=== PATIENT | female | born 1985 | race Caucasian/White ===

== ENCOUNTER 2017-02-07 07:57 | Inpatient (IN) ==
[2017-02-07] MEDS ORDERED: *HR* Nalbuphine 20 MG/ML AMPUL IVP PRN (08:53)
[2017-02-07] MEDS ORDERED: Metoclopramide 10 MG/2 ML VIAL IVP PRN (08:53)
[2017-02-07] MEDS ORDERED: Famotidine 20 MG/2 ML VIAL IVP PRN (08:53)
[2017-02-07] MEDS ORDERED: Naloxone 0.4 MG/ML INJ IVP PRN (08:53)
[2017-02-07] MEDS ORDERED: miSOPROStol 100 MCG TABLET PO STA (09:02)
[2017-02-07 09:14] LABS: Basophils % 0.6 %; Eosinophils # 0.1 K/mcL (0.0-0.6); Hematocrit 37.3 % (35.3-44.9); Hemoglobin 13.2 g/dL (11.5-15.4); Lymphocytes # 1.2 K/mcL (0.6-4.6); Lymphocytes % 24.3 %; Mean Corpuscular HGB Conc 35.4 g/dL (31.6-35.5); Mean Corpuscular Hemoglobin 31.4 pg (28.0-33.3); Mean Corpuscular Volume 88.8 fL (83.0-100.0); Mean Platelet Volume 10.5 fL (9.4-12.4); Monocytes # 0.4 K/mcL (0.0-1.3); Monocytes % 7.1 %; Neutrophils # 3.3 K/mcL (1.6-8.9); Platelet Count 218 K/mcL (140-400); Red Cell Distribution Width 12.4 % (11.5-14.5)
[2017-02-07 09:19] LABS: Amphetamine Screen,Urine Negative ng/mL (Cutoff=1000); Barbiturate Screen,Urine Negative ng/mL (Cutoff=200); Benzodiazepines Screen,Urine Negative ng/mL (Cutoff=200); Cannabinoid Screen,Urine Negative ng/mL (Cutoff = 50); Cocaine Screen,Urine Negative ng/mL (Cutoff= 300); Opiate Screen,Urine Negative ng/mL (Cutoff=300); Phencyclidine Screen,Urine Negative ng/mL (Cutoff=25)
[2017-02-07] MEDS: Ringers Solution, Lactated 1,000 ML IVC SCH ×3 (09:29→18:40)
--- NOTE | 2017-02-07 10:17 | OB/GYN History & Physical ---
Date of Encounter: 02/07/17 Time of Encounter: 10:14 Assessment and Plan (1) 39 weeks gestation of Current visit: Yes Status: Acute admitted for IOL (2) Type 2 diabetes mellitus affecting in third trimester, antepartum Current visit: Yes Status: Acute Accucheck as needed in labor Will continue medications following delivery History of Present Illness Chief complaint: Schedule IOL HPI: Ms. Nieves is a 31 year old female at 39w5d presents for scheduled Induction of labor for Dr. Luque. Patient reports +FM, denies any contractions or LOF. Patient reports only complication to be Type II DM which is controlled with Insulin and Metformin. Glucose this morning was 84. Patient received 50mcg of Cytotec PO 0925. Blood type: A+, Rubella: Immune, Hep B: Negative, GBS Negative. Past Med Surg Social Fam HX - Past Medical History Source: patient Medical history: diabetes Psychiatric history: no psych history - Past Surgical History Surgical History: other (Left foot-ganglion cyst removal) - Social History Smoking Status: Never smoker Smokeless Tobacco Status: (n/z) Alcohol use: none Drug use: none Current living situation: Home - Independent Activity Level: Independent ambulation Recent Out of Country Travel Within the Last 8 Weeks: No Exposure or Possible Exposure to Illness During Travel: No - Family History Mother Adopted: [place]: master monet Age: 58 Family Member Ethnicity: Non- Living Status: Still Living Hx Family Cardiac Disorders: No Hx Family Respiratory Disorders: No Hx Family Cancer: No Hx Family GI Disorders: No Hx Family Genitourinary Disorders: No Hx Family Endocrine Disorder: Yes (diabetes type 2) Hx Family Musculoskeletal Disorders: No Hx Family Neuromuscular Disorders: No Hx Family Neurologic Disorders: No Hx Family HEENT Disorders: No Hx Family Autoimmune Disorders: No Hx Family Reproductive Disorders: No Hx Family Psychosocial Disorders: No Hx Family Medical Disorders: No Obstetrical History - Pregnancies : 2 Para: 1 Term: 1 : 0 Ab's: 0 Livin Medications and Allergies Lantus 6 units SQ QAM 02/07/17 [History] Lantus 20 unit SQ HS 02/07/17 [History] Metformin HCl [Glucophage] 1,000 mg PO BID 02/07/17 [History] Tablet 1 tab PO DAILY 02/07/17 [History] 3 Allergy/AdvReac Type Severity Reaction Status Date / Time No Known Allergies Allergy Verified 02/07/17 08:42 Review of System OB - Constitutional Constitutional ROS IM: no chills, no fever(s), no headache(s) - Cardiovascular Cardiovascular: no chest pain, no palpitations, no syncope - Respiratory Respiratory: no dyspnea - Gastrointestinal Gastrointestinal: no abdominal pain, no cramping, no diarrhea, no heartburn, no nausea, no vomiting - Genitourinary Genitourinary: no abnormal vaginal bleeding, no dysuria, no flank pain, no urinary frequency, no vaginal discharge, no vaginal odor Exam - Constitutional Constitutional: well developed, well nourished, no acute distress, average body habitus - HEENT HEENT: Normocephaly, Mucus Membranes Moist - Neck Neck exam: full ROM, supple - Lungs Respiratory exam: CTAB - Cardiovascular Cardiovascular exam: RRR, +S1, +S2 - Abdomen Abdomen: Present: bowel sounds normal, gravid, non tender - Extremities Extremities exam: full ROM, normal inspection Deep Tendon Reflex Grade: 2+ Normal - Cervix Dilation: 1 (Per RN on admission) Effacement: 75 Station: -2 - Uterus Uterus exam: Present: normal size, normal contour - Anus/Rectum Anus/Rectum: Present: normal perianal skin (FHR 135 bpm moderate variability + 15x15 accels no decels noted. Cat 1 tracing. Contractions 3-4 min apart) Results Result Diagrams: 02/07/17 08:25 02/07/17 08:25 All other labs normal. - VTE Reasons for not Prescribing Prophylaxis: Treatment not Indicated - Low risk for VTE
[2017-02-07] MEDS ORDERED: Oxytocin 20 units/ LR 1000 mL 20 UNIT/1,000 ML BAG IVC SCH (14:30)
--- NOTE | 2017-02-07 15:45 | Anesthesia Evaluation PreOp ---
Date of Encounter: 02/07/17 Time of Encounter: 15:43 - Past History Planned Operation: MAITE Cardiac History: Denies any Significant Hx Pulmonary History: Denies Any Significant HX PRESSING DEPARTMENT SUPERVISOR History: Denies Any Significant HX Other Medical History: Diabetes Type II, GERD Anesthesia History: No Prior Anesthetic Complications, Past Anesthesia (maite) : Yes Test: Positive Alcohol Use: none Drug use: none Medications and Allergies Lantus 6 units SQ QAM 02/07/17 [History] Lantus 20 unit SQ HS 02/07/17 [History] Metformin HCl [Glucophage] 1,000 mg PO BID 02/07/17 [History] Tablet 1 tab PO DAILY 02/07/17 [History] 3 Allergy/AdvReac Type Severity Reaction Status Date / Time No Known Allergies Allergy Verified 02/07/17 08:42 - Meds/Allergy Pre-op Review Medications Reviewed: Yes Allergies Reviewed: Yes Beta Blockers on Current Med List: No Anesthesia Results - Labs 02/07/17 08:25 02/07/17 08:25 Anesthesia Exam 136/86 88 16 fht 123 Height: 5'3" Weight: 70 kg NPO (# of Hours): 8 Pain Scale: 3 Pain Scale Used: Numeric (1 - 10) - HEENT Pupil (Motor): Pupils equal Mallampati: II Teeth: Normal Oral Opening: Greater than 3 - PRESSING DEPARTMENT SUPERVISOR LOC: Oriented PRESSING DEPARTMENT SUPERVISOR Motor: Normal RUE, Normal LUE, Normal RLE, Normal LLE, Normal Face PRESSING DEPARTMENT SUPERVISOR Sensory: Normal: RUE, LUE, RLE, LLE, Face - Cardiac Rhythm: Regular Murmur: None - Pulmonary Breath Sounds: bilateral Clear Respiratory Effort: Symmetrical Anesthesia Assess/Plan ASA Score: 2 Modified Mundo Scale for Level of Consciousness: Cooperative, oriented, and tranquil Anesthetic Plan: Regional Autologous Blood: No Monitoring Plan: Standard Monitors Recovery Plan: Other (risks discussed, questions answered, consented)
[2017-02-07] MEDS ORDERED: *HR* FentaNYL (PF) 100 MCG/2 ML VIAL ONE (16:42)
[2017-02-07] MEDS ORDERED: *HR* Ropivacaine/PF 0.2% 10 ML AMPUL ONE (16:42)
[2017-02-07] MEDS ORDERED: Epidural Premix (fent/bupiv) 110 ML EP ONE (16:42)
[2017-02-07] MEDS ORDERED: *HR* Ropivacaine/PF 0.2% 10 ML AMPUL EP ONE (17:07)
[2017-02-07] MEDS ORDERED: *HR* FentaNYL (PF) 100 MCG/2 ML VIAL EP ONE (17:07)
--- NOTE | 2017-02-07 17:10 | Anesthesia Procedures ---
Date of Encounter: 02/07/17 Time of Encounter: 17:08 Procedures: Anesthesia - Epidural/Spinal Patient ID/Chart reviewed: Yes Patient examined: Yes OB Eval: Gestational age: 39 OB Eval: : 2 OB Eval: Hx Para: 1 OB Eval: Dilated at (cm): 4 OB Eval: Contractions: Non-stressed pattern Consent Obtained: Yes Supplemental Oxygen: None/Room Air Site Prep: Aseptic Technique, Sterile prep and drape, 0.5% Chlorhexidine/Alcohol Patient position: upright Local Anesthetic: Lidocaine 1% Amount of Local Anesthetic used: 3 Touhy Needle Gauge: 18 Touhy Needle Depth (cm): 5 Catheter Depth at Skin (cm): 15 Test Dose (1.5% Lido + Epi): Volume given (mls): 3 Test Dose Result: Negative Loading Dose: Fentanyl (mcg): 100 Loading Dose: Other: rop 0.2% 10ml Loading Dose Administered: Thru Touhy Needle Infusion Med: 0.125% Bupivacaine w/ 2 mcg/ml Fentanyl Infusion Rate (mls/hr): 15 (pcea 5 cc q30") Catheter Secured in Place: Tegaderm Interspace Used: L3-L4 Loss of Resistance (LOREN): Yes Blood: No CSF: No Paresthesia: No Procedure: aseptic, tolerated well, effective Vitals + FHT's: 130/87 78 fht 134
[2017-02-07] MEDS ORDERED: Epidural Premix (fent/bupiv) 110 ML EP SCH (17:15)
--- NOTE | 2017-02-07 23:38 | OB/GYN Procedure Note ---
Delivery - Delivery Date: 02/07/17 Provider: Phil Luque Delivery induction: misoprostol Delivery augmentation: rupture of membranes Estimated Blood Loss: 200 - Infant (s) Infant A Infant Delivery Date: 02/07/17 Infant Delivery Time: 23:06 Presentation: vertex Position: JOHN Gender: Male Viability: Viable Weight Gram: 3.385 kg at 1 minute: 8 at 5 mins: 9 Shoulder Dystocia: not encountered Specimens collected: cord blood Cord: 3 umbilical vessels - Repair Episiotomy: none Laceration Description: Perineal - 2nd Degree - Complications Delivery complications: none - Disposition Mom disposition: stable in LDR disposition: stable in LDR - Comments Comments: Pt s/p liveborn female without complications. 2nd degree laceration without complications. Delivery of normal placenta without complications
[2017-02-08] MEDS ORDERED: Oxytocin 20 units/ LR 1000 mL 20 UNIT/1,000 ML BAG IVC ONE (01:57)
[2017-02-08] MEDS ORDERED: Acetaminophen 325 MG TABLET PO PRN (01:57)
[2017-02-08] MEDS ORDERED: Measles/Mumps/Rubella Vacc 0.5 ML VIAL SQ PRN (01:57)
[2017-02-08] MEDS ORDERED: Oxytocin 20 units/ LR 1000 mL 20 UNIT/1,000 ML BAG IVC SCH (01:57)
[2017-02-08] MEDS ORDERED: Rho Immune Globulin 1,500 UNIT SYRINGE IM PRN (01:57)
[2017-02-08 07:05] LABS: Basophils % 0.2 %; Eosinophils # 0.1 K/mcL (0.0-0.6); Eosinophils % 0.6 %; Hematocrit 34.1 % (35.3-44.9); Hemoglobin 11.9 g/dL (11.5-15.4); Immature Granulocytes % 0.4 % (0-4); Lymphocytes # 1.3 K/mcL (0.6-4.6); Lymphocytes % 13.7 %; Mean Corpuscular HGB Conc 34.9 g/dL (31.6-35.5); Mean Corpuscular Hemoglobin 31.4 pg (28.0-33.3); Mean Platelet Volume 10.4 fL (9.4-12.4); Monocytes # 0.5 K/mcL (0.0-1.3); Monocytes % 5.3 %; Neutrophils # 7.7 K/mcL (1.6-8.9); Platelet Count 180 K/mcL (140-400); Red Blood Count 3.79 M/mcL (3.82-4.97); Red Cell Distribution Width 12.4 % (11.5-14.5); Segmented Neutrophils % 79.8 %
[2017-02-08] MEDS: *HR* Metformin 500 MG TABLET PO SCH ×2 (07:59→21:26)
[2017-02-08] MEDS: Prenatal Vit/FA 1 EACH TABLET PO SCH (07:59)
[2017-02-08] MEDS ORDERED: Dextrose Gel 15 GM PO PRN ×2 (13:45)
--- NOTE | 2017-02-08 13:57 | OB/GYN Progress Note ---
Date of Encounter: 02/08/17 Time of Encounter: 13:55 - Assessment and Plan (1) Vaginal delivery Current Visit: Yes Status: Acute Pt meeting all milestones. Anticipate discharge home PPD#2. (2) Mother currently breast-feeding Current Visit: Yes Status: Acute consult (3) Type 2 diabetes mellitus affecting in third trimester, antepartum Current Visit: Yes Status: Acute Pt reports she was on Metformin and Glipizide prior to . She desires to restart this regimen. Glucose 272 this afternoon but this is likely due to diet. Will add sliding scale correction and restart Glipizide. POC per Dr. Cardona. Subjective - Subjective Interval history: Pt denies complaints today. She reports light lochia and no pain. She does admit to eating donuts and drinking iced cappuccino this am. Patient reports: appetite normal, voiding normally, pain well controlled, ambulating normally : doing well, nursing well Objective - Latest Vital Signs Latest vital signs: Vital Signs Temp Pulse Resp BP Pulse Ox 02/08/17 08:06 97.4 F L 66 19 109/74 97 02/08/17 03:45 97.9 F 86 16 117/75 97 02/08/17 02:50 98.1 F 75 16 112/74 96 02/08/17 01:50 97.7 F 70 14 122/72 96 Intake and Output 02/07/17 02/08/17 02/08/17 23:59 07:59 15:59 Intake Total 1998 1000 / 1000 Output Total 800 / 800 900 / 900 Balance 1199 / 1199 100 / 100 Intake: IV Fluids 1998 1000 / 1000 Pitocin 20 unit In 1,000 ml @ 1000 / 1000 125 mls/hr IVC .Q8H [facility]EN Rx#: [id number] Lactated Ringers 1,000 ML @ 125 1998 / 1998 mls/hr IVC .Q8H [place] Rx#: [id number] Output: Urine 900 / 900 Catheter 800 / 800 Other: Weight 68.1 kg Blood Glucose* 272 Patient Weight 02/08/17 23:59 Weight 68.1 kg - Exam Lungs: bilateral: normal Chest: Normal S1, Normal S2 Extremities: Present: normal Abdomen: Present: soft Uterus: Present: firm. Absent: tenderness - Labs Labs: Laboratory Results - last 24 hr 02/08/17 02/08/17 06:45 11:32 WBC 9.7 D RBC 3.79 L Hgb 11.9 Hct 34.1 L MCV 90.0 MCH 31.4 MCHC 34.9 RDW 12.4 Plt Count 180 MPV 10.4 Immature Gran % 0.4 Seg Neutrophils % 79.8 Lymphocytes % 13.7 Monocytes % 5.3 Eosinophils % 0.6 Basophils % 0.2 Neutrophils # 7.7 Lymphocytes # 1.3 Monocytes # 0.5 Eosinophils # 0.1 Basophils # 0.0 POC Glucose 272 H
[2017-02-08] MEDS: *HR* GlipiZIDE XL (24 HR) 10 MG TABLET PO SCH (14:38)
[2017-02-08] MEDS: Insulin LISPRO 300 UNITS/3 ML VIAL SQ SCH (17:13)
[2017-02-08] MEDS: Ibuprofen 600 MG TABLET PO PRN (21:27)
[2017-02-09] MEDS: Insulin LISPRO 300 UNITS/3 ML VIAL SQ SCH (07:52)
[2017-02-09] MEDS: *HR* Metformin 500 MG TABLET PO SCH (08:03)
[2017-02-09] MEDS: Ibuprofen 600 MG TABLET PO PRN (08:03)
[2017-02-09] MEDS: Prenatal Vit/FA 1 EACH TABLET PO SCH (08:04)
[2017-02-09 08:05] VITALS: BP 106/69
--- NOTE | 2017-02-09 08:43 | Discharge Summary ---
Date of Encounter: 02/09/17 Time of Encounter: 08:38 - Discharge Diagnosis (1) Vaginal delivery Priority: Primary Status: Acute Comments: Patient delivered a viable male via vaginal delivery on 02/07/17 without complications. She states that she is doing well and is ready to go home. She states that she is able to ambulate without issues. Reports urination and passing of gas but states that she has not had a bowel movement yet. States she has had a decrease in her vaginal bleeding and it is a small amount now. Denies having any pain. State that she is eating well and tolerating a normal diet. She states that she see [facility] for her diabetes. (2) Mother currently breast-feeding Priority: Secondary Status: Acute Comments: Mother states that she is breast feeding without issues. Has a breast pump at home. States she does not need a prescription for a pump at this time. (3) Type 2 diabetes mellitus affecting in third trimester, antepartum Priority: Secondary Status: Acute Comments: Pt changed to pre- regimine of Glipizide and metformin for her diabetes. Most recent blood sugar was 75. Recommend following up with her physician that manages her blood sugar. Pt states already has appointment scheduled. Discussed hypoglycemia signs and interventions. - Discharge Medications Home Medications: Metformin HCl [Glucophage] 1,000 mg PO BID 02/07/17 [History] GlipiZIDE XL (24 HR) [Glucotrol XL] 10 mg PO 0800 tab.er.24 02/09/17 [Rx] Allergies/Adverse Reactions: 3 Allergy/AdvReac Type Severity Reaction Status Date / Time No Known Allergies Allergy Verified 02/07/17 08:42 Data Procedures and tests throughout hospitalization: Laboratory Tests 02/07/17 02/07/17 02/07/17 08:25 08:25 08:25 WBC 5.1 RBC 4.20 Hgb 13.2 Hct 37.3 MCV 88.8 MCH 31.4 MCHC 35.4 RDW 12.4 Plt Count 218 MPV 10.5 Immature Gran % 1.0 Seg Neutrophils % 65.0 Lymphocytes % 24.3 Monocytes % 7.1 Eosinophils % 2.0 Basophils % 0.6 Neutrophils # 3.3 Lymphocytes # 1.2 Monocytes # 0.4 Eosinophils # 0.1 Basophils # 0.0 Glucose 84 POC Glucose Urine Opiates Screen Negative Ur Barbiturates Screen Negative Ur Phencyclidine Scrn Negative Ur Amphetamines Screen Negative U Benzodiazepines Scrn Negative Urine Cocaine Screen Negative U Marijuana (THC) Screen Negative 02/08/17 02/08/17 02/08/17 06:45 11:32 16:47 WBC 9.7 D RBC 3.79 L Hgb 11.9 Hct 34.1 L MCV 90.0 MCH 31.4 MCHC 34.9 RDW 12.4 Plt Count 180 MPV 10.4 Immature Gran % 0.4 Seg Neutrophils % 79.8 Lymphocytes % 13.7 Monocytes % 5.3 Eosinophils % 0.6 Basophils % 0.2 Neutrophils # 7.7 Lymphocytes # 1.3 Monocytes # 0.5 Eosinophils # 0.1 Basophils # 0.0 Glucose POC Glucose 272 H 212 H Urine Opiates Screen Ur Barbiturates Screen Ur Phencyclidine Scrn Ur Amphetamines Screen U Benzodiazepines Scrn Urine Cocaine Screen U Marijuana (THC) Screen 02/08/17 02/09/17 23:14 07:48 WBC RBC Hgb Hct MCV MCH MCHC RDW Plt Count MPV Immature Gran % Seg Neutrophils % Lymphocytes % Monocytes % Eosinophils % Basophils % Neutrophils # Lymphocytes # Monocytes # Eosinophils # Basophils # Glucose POC Glucose 88 75 Urine Opiates Screen Ur Barbiturates Screen Ur Phencyclidine Scrn Ur Amphetamines Screen U Benzodiazepines Scrn Urine Cocaine Screen U Marijuana (THC) Screen Labs on day of discharge: Labs from last 24 hours 02/09/17 02/08/17 02/08/17 07:48 23:14 16:47 POC Glucose 75 88 212 H 02/08/17 11:32 POC Glucose 272 H Date of admission: 02/07/17 07:57 Primary care physician: PCP NONE Consults: 02/08/17 01:57 Consult to Jacquard Loom [facility] [CONS] Routine Comment: Vaginal delivery, consult needed Discharging clinician: Dionicio Joyce Anticipated date of discharge: 02/09/17 - Patient Status Disposition: Home, Self-Care Condition: Good Functional capacity at discharge: independent ambulation Overall status at discharge: patient is back to baseline - Discharge Instructions Follow Up With: NONE,PCP [Primary Care Provider] - Phil Luque MD [Partnered Physician] - Additional Instructions: Perineal Care: Always wipe front to back Change your pad frequently Use your smitha bottle with warm water and spray front to back Do not douche, use tampons, have sexual intercourse or put anything in your vagina for 4-6 weeks after delivery Bleeding: Vaginal bleeding can last up to 6 weeks Your menstrual period may return as early as 6 weeks after you are discharged from the hospital [place]/Stitches Care: Vaginal Delivery Vaginal stitches will dissolve within 4-6 weeks Follow perineal care instructions Care Stitches will dissolve on their own If you have pinky, they will need to be removed in the doctors office within 5-7 days. You may shower with stitches or pinky Drip plan or soapy water over the incision to clean. Pat dry gently with a clean towel. Make sure you completely dry under the skin folds DO NOT USE powders, lotions, rubbing alcohol or hydrogen peroxide on or around your incision. This will slow your wound healing It is normal to have soreness, burning, tingling, itchiness and/or numbness as your incision heals Activity: Rest frequently Do not lift anything heavier than a gallon of milk, up to 10-15 pounds No driving for 1-2 weeks for Vaginal delivery No driving for 2-4 weeks for delivery Take stairs slowly, one at a time Gradually increase your daily activity until you are back to your normal routine Do not exercise until you have had your follow-up appointment Bathing: Take a shower daily Do not take a tub bath for the first 4 weeks Diet: Drink plenty of water and fruit juices Eat a well-balanced diet with foods high in fiber such as fruits and vegetables Depression: Your hormones have a major impact on your feelings and emotions. Hormone imbalance may cause changes in your mood, creating unfamiliar thoughts and actions. Support is available to help you understand and cope with these feelings and mood changes. If you answer yes to any of the following questions, please call your health care provider: Are you having trouble sleeping? Are you feeling isolated? Have you lost your appetite? Are you having thoughts of hurting yourself or others? WARNING SIGNS: Heavy bleeding from the vagina (blood is bright red and soaks a sanitary pad in an hour or less.) Passing a blood clot larger than your fist Discharge from the vagina that has a bad odor Temperature over 100.4 F, or if you feel cold and have chills An episiotomy site that is warm, swollen or oozing. Use a mirror if needed Urination (pee) that is painful, very red and swollen or leaking fluid An incision that is painful, very red and swollen and leaking fluid An incision that has come open Breasts that are painful or full with flu like symptoms Redness, warmth or swelling in the calf of your leg Trouble breathing, dizziness, visual disturbance or faintness *Notify your health care provider immediately or go to the nearest Emergency Room if you experience any of the above signs.* To contact the nurses station 24 hours a day, For non-urgent, routine questions, please call the office at - Diet and Activity Activity: increase activity as tolerated Diet: advance to your usual diet Hospital Course Reason for admission: induction of labor Delivery: Episiotomy: none Laceration: 2nd degree Other procedures: none complications: none Discharge diagnosis: IUP at term delivered [place] baby: male Hospital course: - Delivery Date: 02/07/17 Provider: Phil Luque Delivery induction: misoprostol Delivery augmentation: rupture of membranes Estimated Blood Loss: 200 - Infant (s) Infant A Infant Delivery Date: 02/07/17 Infant Delivery Time: 23:06 Presentation: vertex Position: JOHN Gender: Male Viability: Viable Weight Gram: 3.385 kg at 1 minute: 8 at 5 mins: 9 Shoulder Dystocia: not encountered Specimens collected: cord blood Cord: 3 umbilical vessels - Repair Episiotomy: none Laceration Description: Perineal - 2nd Degree - Complications Delivery complications: none - Disposition Mom disposition: stable and appropriate for discharge. - Comments Comments: Pt s/p liveborn female without complications. 2nd degree laceration without complications. Delivery of normal placenta without complications Time Attestation: Total time spent providing and/or coordinating discharge services: Time Spent: Less than 30 minutes Exam - Constitutional Vitals: Temp Pulse Resp BP Pulse Ox 97.6 F 73 16 106/69 97 02/09/17 07:40 02/09/17 07:40 02/09/17 08:10 02/09/17 07:40 02/09/17 07:40 General appearance IM: A&O X 3 - Respiratory Respiratory exam: Present: CTAB - Cardiovascular Cardiovascular exam IM: Present: RRR, +S1, +S2 - GI/Abdominal GI/Abdominal exam IM: normal bowel sounds, soft, no peritoneal signs - Uterine Tone: Firm Uterus Position: 2 Fingers Below Umbilicus - Extremities Exam Extremities exam IM: Present: normal capillary refill, normal inspection. Absent: calf tenderness - Neurological Exam Neurological exam: alert, oriented X3 - Psychiatric Additional comments: Reports good mood.
[2017-02-09] MEDS: *HR* GlipiZIDE XL (24 HR) 10 MG TABLET PO SCH (09:41)
== END 2017-02-09 11:00 | disposition home or self-care (01) | DRG 774 ==
LOC: 1NENULAB 07:57 → 1NENUOBS 02-08 02:18
PROVIDERS: ADMIT Obstetrics & Gynecology; ATTEND Obstetrics & Gynecology